=== PATIENT | male | born 1970 | race Caucasian/White ===

== ENCOUNTER → 2024-05-01 16:50 | Outpatient (REF) | payer OTHER, SELFPAY | LOC: RAD 16:50 | PROVIDERS: ATTENDING PHYSICIAN Family Medicine | DX: J01.01 Acute recurrent maxillary sinusitis (principal) | CPT/HCPCS: 70486 ==

== ENCOUNTER → 2024-10-20 09:31 | Outpatient (REF) | payer SELFPAY | LOC: HWRAD 09:31 | PROVIDERS: ATTENDING PHYSICIAN Hospitalist | DX: R03.0 Elevated blood-pressure reading, without diagnosis of hypertension (principal) | CPT/HCPCS: 75571 ==